=== PATIENT | male | born 1960 | race Caucasian/White ===

== ENCOUNTER 2021-10-25 18:30 | Observation (INO) ==
[2021-10-25] MEDS ORDERED: Morphine 4 MG/ML VIAL (1 ml) IV ONE (19:43)
[2021-10-25] MEDS ORDERED: Lidocaine PATCH 5% PATCH TRANSDERM ONE (22:54)
[2021-10-26] MEDS ORDERED: Orphenadrine Citrate INJ 30 mg/ml 2 ml VIAL (60 mg) IV ONE (00:35)
[2021-10-26] MEDS ORDERED: Acetaminophen IV 1 GM/100ML 100 ML IV SCH (00:45)
[2021-10-26] MEDS: Acetaminophen IV 1 GM/100ML VI 100 ML IV SCH (05:33)
[2021-10-26] MEDS: Enoxaparin 40 MG/0.4 ML SYR SUBCUT SCH ×2 (05:33→22:14)
[2021-10-26] MEDS ORDERED: Orphenadrine Citrate INJ 30 mg/ml 2 ml VIAL (60 mg) IV SCH (09:00)
[2021-10-26] MEDS: Acetaminophen IV 1 GM/100ML 100 ML IV SCH ×2 (12:29→17:47)
[2021-10-26] MEDS ORDERED: HYDROmorphone 0.5 MG/0.5 ML SYRINGE IV SLOW PU PRN (17:10)
[2021-10-26] MEDS ORDERED: Lidocaine Patch REMOVE NOTE PATCH OFF SCH (21:00)
[2021-10-27] MEDS: Acetaminophen IV 1 GM/100ML VI 100 ML IV SCH (00:29)
[2021-10-27 06:07] LABS: Hematocrit 41 % (42-52); Hemoglobin 14.3 g/dL (14.0-18.0); Mean Platelet Volume 6.4 fL (7.4-10.4); Platelet Count 227 10^3/uL (150-450)
[2021-10-27 06:24] LABS: eGFR CKD-EPI 85.1 (>60)
[2021-10-27] MEDS ORDERED: Lidocaine PATCH 5% PATCH TRANSDERM PRN (08:53)
[2021-10-27] MEDS ORDERED: Lidocaine Patch REMOVE NOTE PATCH OFF PRN (08:55)
[2021-10-27] MEDS: Enoxaparin 40 MG/0.4 ML SYR SUBCUT SCH (20:51)
[2021-10-28 05:48] LABS: ABS Eosinophils 0.3 10^3/ul (0-0.6); ABS Lymphocytes 1.2 10^3/ul (1.0-4.8); ABS Monocytes 0.6 10^3/ul (0-0.8); ABS Neutrophils 4.1 10^3/ul (1.5-7.7); Eosinophil % 4.4 %; Hematocrit 42 % (42-52); Hemoglobin 14.3 g/dL (14.0-18.0); Lymphocyte % 19.9 %; Mean Corpuscular HGB Conc 34 g/dL (31-36); Mean Corpuscular Hemoglobin 32 pg (27-31); Mean Corpuscular Volume 92 fL (80-94); Mean Platelet Volume 6.5 fL (7.4-10.4); Platelet Count 243 10^3/uL (150-450); Red Cell Distribution Width 14 % (10-15); White Blood Count 6.3 10^3/uL (3.5-10.8)
[2021-10-28 06:14] LABS: Calcium 8.2 mg/dL (8.6-10.3); Potassium 3.7 mmol/L (3.5-5.0); eGFR CKD-EPI 92.8 (>60)
[2021-10-28 07:35] VITALS: BP 135/79
== END 2021-10-28 12:05 | disposition home or self-care (01) ==
LOC: EDHOLD 18:30 → ED 18:30 → SUATTDRO 10-26 00:31 → SSU 10-26 07:40
PROVIDERS: ADMIT Student in an Organized Health Care Education/Training Program; ATTEND Hospitalist